=== PATIENT | female | born 1995 | race Caucasian/White ===

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

== ENCOUNTER 2018-06-22 16:42 | Emergency (ER) | END 2018-06-22 20:22 | disposition home or self-care (01) ==

== ENCOUNTER 2019-01-18 03:29 | Emergency (ER) | payer SELFPAY ==
[~2019-01-18] VITALS: Ht 157.5 cm; Wt 89.1 kg
[~2019-01-18 03:29] MED LIST changes: +ALBU8.5H8 INH; +AZIT250T PO; +FIORICET PO; +ONDA4TAB14 PO; -ONDA8TAB14 PO
[2019-01-18 03:33] VITALS: BP 129/58; PULSE 135; RESP 30; Ht 157.5 cm; Wt 89.1 kg
[2019-01-18] MEDS ORDERED: ONDANSETRON (ODT) 4 MG TAB ODT STA (04:47)
[2019-01-18] MEDS ORDERED: ONDA4TAB14 PO (05:34)
--- NOTE | 2019-01-18 05:39 | ERD ---
ER Documentation Chief Complaint Chief Complaint n/v s/p eating pizza from [employer] at 0030, no diarrhea/AP HPI 23-year-old male no significant past medical history presents for nausea vomi ting x1 day. She states that she ate some pizza and began vomiting. She also had an edible marijuana cookie. She has vomited multiple times. No blood noted in the vomit. She denies diarrhea. No fevers or chills noted. Denies chest pain or shortness of breath. No other modifying factors noted. No other treatments tried at home. ROS All systems reviewed and are negative except as per history of present illness. Medications Home Meds Active Scripts Ondansetron (Ondansetron Odt) 4 Mg Tab.rapdis, 4 MG PO Q6H PRN for NAUSEA AND/OR VOMITING, #15 TAB Prov:CHELSEAJESÚS DO 01/18/19 Acetamin/Butalbital/Caffeine* (Fioricet*) [id number] Tab, 1 TAB PO Q6H PRN for PAIN, #30 TAB Prov:SUSAN LEACH 06/22/18 Ibuprofen* (Motrin*) 600 Mg Tab, 600 MG PO Q6, #30 TAB Prov:SUSAN LEACH C 06/22/18 Ibuprofen* (Motrin*) 600 Mg Tab, 600 MG PO TID, #30 TAB Prov:JOÃO ALBARRAN DO 10/04/16 Albuterol Sulfate* (Proair HFA*) 8.5 Gm Hfa.aer.ad, 2 PUFF INH Q4, #1 INHALER Prov:JOÃO ALBARRAN DO 10/04/16 Azithromycin* (Zithromax*) 250 Mg Tablet, 250 MG PO .ZPACK DIRECTED, #6 TAB TAKE 500 MG (2 TABS) THE FIRST DAY THEN 250 MG (1 TAB) DAYS 2-5 Prov:JOÃO ALBARRAN DO 10/04/16 Ondansetron (Ondansetron Odt) 4 Mg Tab.rapdis, 4 MG PO Q6H PRN for NAUSEA AND/OR VOMITING, #10 TAB Prov:JOÃO ALBARRAN DO 10/04/16 Allergies Allergies: Coded Allergies: Penicillins (Verified Allergy, Severe, RASH, 09/27/12) PMhx/Soc Medical and Surgical Hx: pt denies Medical Hx History of Surgery: Yes (GALL BLADDER REMOVED) Anesthesia Reaction: No Hx Neurological Disorder: No Hx Respiratory Disorders: No Hx Cardiac Disorders: No Hx Psychiatric Problems: No Hx Miscellaneous Medical Probl: No Hx Alcohol Use: Yes Hx Substance Use: Yes (MARIJUANA) Hx Tobacco Use: Yes Smoking Status: Current every day smoker FmHx Family History: No coronary disease Physical Exam Vitals Vital Signs Date Temp Pulse Resp B/P (MAP) Pulse Ox O2 O2 Flow FiO2 Time Delivery Rate 01/18/19 99.5 135 30 129/58 100 03:33 (81) Physical Exam Const: No acute distress Resp: Clear to auscultation bilaterally Cardio: Regular rate and rhythm, no murmurs Abd: Soft, non distended. Normal bowel sounds, no tenderness to palpation, no McBurney's point tenderness, no Rai sign, no rebound or guarding noted Skin: No petechiae or rashes Back: No midline or flank tenderness Ext: No cyanosis, or edema Neur: Awake and alert Psych: Normal Mood and Affect Results 24 hrs Laboratory Tests Test 01/18/19 05:15 POC Beta HCG, Qualitative NEGATIVE Current Medications Medications Dose Sig/Marc Start Time Status Last (Trade) Ordered Route PRN Stop Time Admin Dose Reason Admin Ondansetron 4 mg ONCE STAT 01/18/19 DC 01/18/19 HCl (Zofran ODT 04:47 01/18/19 04:57 Odt) 04:48 Procedures/MDM Medical Decision Making: Differential diagnosis includes but not limited to acute gastritis, acute gastroenteritis, appendicitis, cholecystitis, pancreatitis, nephrolithiasis, emesis secondary to cannabis Patient appeared well on physical exam. Nontoxic appearing. ED course: Patient was given Zofran. Symptoms improved with treatment. Abdominal examination was benign. There is no abdominal pain noted. Low suspicion for acute abdomen at this point Patient likely has an acute gastroenteritis Prescription(s): Patient given prescription for supportive medications . Patient advised to follow up with PCP in 1-2 days. Patient advised to return to ED for new or worsening symptoms. Patient stable on discharge from the ED. Disclaimer: Inadvertent spelling and grammatical errors are likely due to EHR/dictation software use and do not reflect on the overall quality of patient care. Also, please note that the electronic time recorded on this note does not necessarily reflect the actual time of the patient encounter. Departure Diagnosis: Primary Impression: Nausea and vomiting Vomiting type: unspecified Vomiting Intractability: unspecified Qualified Codes: R11.2 - Nausea with vomiting, unspecified Condition: Fair Patient Instructions: Nausea and Vomiting-Adult Referrals: [facility] YOU HAVE RECEIVED A MEDICAL SCREENING EXAM AND THE RESULTS INDICATE THAT YOU DO NOT HAVE A CONDITION THAT REQUIRES URGENT TREATMENT IN THE EMERGENCY DEPARTMENT. FURTHER EVALUATION AND TREATMENT OF YOUR CONDITION CAN WAIT UNTIL YOU ARE SEEN IN YOUR DOCTORS OFFICE WITHIN THE NEXT 1-2 DAYS. IT IS YOUR RESPONSIBILITY TO MAKE AN APPOINTMENT FOR FOLOW-UP CARE. IF YOU HAVE A PRIMARY DOCTOR --you should call your primary doctor and schedule an appointment IF YOU DO NOT HAVE A PRIMARY DOCTOR YOU CAN CALL OUR PHYSICIAN REFERRAL HOTLINE AT IF YOU CAN NOT AFFORD TO SEE A PHYSICIAN YOU CAN CHOSE FROM THE FOLLOWING [facility] [address] [facility]. [facility] [address] [email or web address] [address] [facility] [facility] [address] [facility]. [facility] [address] [facility]. [facility]. [address] Additional Instructions: Call your primary care doctor TOMORROW for an appointment during the next 1-2 days.See the doctor sooner or return here if your condition worsens before your appointment time. JESÚS TRAN DO January 18, 2019 05:39
== END 2019-01-18 06:01 | disposition home or self-care (01) ==
LOC: FTE 03:29
DX: R11.2 Nausea with vomiting, unspecified (principal); F17.210 Nicotine dependence, cigarettes, uncomplicated
CPT/HCPCS: 81025; 99283

== ENCOUNTER 2019-03-04 01:18 | Emergency (ER) | payer SELFPAY ==
[~2019-03-04] VITALS: Ht 157.5 cm; Wt 88.5 kg
[2019-03-04 01:22] VITALS: BP 120/70; PULSE 105; RESP 18; Ht 157.5 cm; Wt 88.5 kg
== END 2019-03-04 06:41 | disposition left against medical advice (07) ==
LOC: FTE 01:18
DX: Z53.21 Procedure and treatment not carried out due to patient leaving prior to being seen by health care provider (principal)